=== PATIENT | female | born 2000 | race African-American/Black ===

== ENCOUNTER 2021-04-15 23:11 | Emergency (ER) | payer OTHER, MEDICAID ==
[2021-04-16] MEDS ORDERED: Lidocaine 1% (PF) 30 ML VIAL ONE (00:12)
== END 2021-04-16 00:45 | disposition home or self-care (01) ==
LOC: CSHERS 23:11
DX: L03.031 Cellulitis of right toe (principal); G47.30 Sleep apnea, unspecified; M41.9 Scoliosis, unspecified; E10.9 Type 1 diabetes mellitus without complications; J45.909 Unspecified asthma, uncomplicated
CPT/HCPCS: 10060; J2001

== ENCOUNTER 2022-05-24 05:28 | Inpatient (IN) | payer OTHER ==
[2022-05-24 07:15] LABS: #Monocytes 0.5 10x3/uL (0.0-1.1); #Neutrophils 8.6 10x3/uL (1.5-8.4); %Basophils 0.4 % (0.0-2.0); %Eosinophils 0.1 % (0.0-6.0); %Lymphocytes 11.9 % (18.0-47.0); %Monocytes 4.7 % (0.0-10.0); %Neutrophils 82.5 % (40.0-75.0); Hemoglobin 12.8 g/dL (12.0-15.5); Mean Corpuscular HGB CONC 33.2 g/dL (32.0-36.0); Mean Corpuscular Hemoglobin 28.9 pg (27.0-33.0); Mean Corpuscular Volume 86.9 fl (81.6-98.3); Mean Platelet Volume 10.4 fl (7.4-10.4); Platelet Count 377 10x3/uL (150-450); RBC Distribution Width 11.9 % (11.5-14.5); Red Blood Cell (RBC) Count 4.43 10x6/uL (3.90-5.03); White Blood Cell (WBC) Count 10.4 10x3/uL (3.5-10.5)
[2022-05-24 07:18] LABS: BHCG - Serum Negative (NEGATIVE); Pregs Control Background? CLEAR/WHITE (CLR/WHITE); Pregs Control Bar Appear? YES (CONTROL BAR)
[2022-05-24] MEDS ORDERED: Ketorolac Tromethamine 30 MG/ML VIAL ONE (07:21)
[2022-05-24] MEDS ORDERED: Ondansetron PF 4 MG/2 ML Vial ONE (07:22)
[2022-05-24 07:27] LABS: ALT (SGPT) 16 U/L (8-55); AST (SGOT) 18 U/L (5-34); Albumin 4.6 g/dL (3.5-5.0); Alkaline Phosphatase 111 U/L (40-110); Anion Gap 28 mmol/L (10-20); BUN (Urea Nitrogen) 25 mg/dL (7.0-18.7); Bilirubin, Total 1.4 mg/dL (0.2-1.2); Calc. Creatinine Clearance 0 mL/min (70-130); Calcium 10.4 mg/dL (7.8-10.44); Carbon Dioxide 14 mmol/L (22-29); Chloride 96 mmol/L (98-107); Estimated GFR 46; Globulin 3.7 g/dL (2.4-3.5); Potassium 5.3 mmol/L (3.5-5.1); Protein, Total 8.3 g/dL (6.0-8.3); Sodium 133 mmol/L (136-145)
[2022-05-24 07:31] LABS: Glucose 793 mg/dL (70-105)
[2022-05-24] MEDS ORDERED: Insulin Regular 300 UNITS/3 ML VIAL ONE (07:54)
[2022-05-24 08:10] LABS: Actual Bicarbonate (HCO3v) 14 mEq/L (22-28); Base Excess -14.5 mEq/L (-2.0 to +3.0); Chloride (VBG) 97 mmol/L (98-106); Potassium (VBG) 5.48 mmol/L (3.70-5.30); Puncture Site Other Site; RapidComm Collect By CBN; Sodium 136.1 mmol/L (133-146); pH (venous) 7.15 (7.32-7.43)
[2022-05-24] MEDS ORDERED: INSULIN REGULAR IN 0.9 % NACL 100 UNIT/100 ML BAG ONE (08:26)
[2022-05-24] MEDS ORDERED: Electrolyte Replacement Protocol 1 EACH IVPB PRN (08:30)
[2022-05-24] MEDS ORDERED: NS 0.9% w/ 20 MEQ KCL 1,000 ML IV PRN ×2 (08:30)
[2022-05-24] MEDS ORDERED: D5 1/2 NS w/20 mEq KCL 1,000 ML IV PRN (08:30)
[2022-05-24] MEDS ORDERED: Sodium Chloride 0.9% 1,000 ML IV PRN ×4 (08:30)
[2022-05-24] MEDS ORDERED: Dextrose 5 %-0.45 % NaCl 1,000 ML IV PRN (08:30)
[2022-05-24] MEDS ORDERED: Acetaminophen 650 MG Suppository PR PRN (08:33)
[2022-05-24 08:56] LABS: Anion Gap 29 mmol/L (10-20); BUN (Urea Nitrogen) 26 mg/dL (7.0-18.7); Calc. Creatinine Clearance 0 mL/min (70-130); Calcium 10.5 mg/dL (7.8-10.44); Carbon Dioxide 12 mmol/L (22-29); Chloride 98 mmol/L (98-107); Estimated GFR 51; Magnesium 2.3 mg/dL (1.6-2.6); Phosphorus 6.3 mg/dL (2.3-4.7); Potassium 5.3 mmol/L (3.5-5.1); Sodium 134 mmol/L (136-145)
[2022-05-24 08:58] LABS: Glucose 758 mg/dL (70-105)
[2022-05-24] MEDS ORDERED: cefTRIAXone\\ROCEPHIN 2 GM VIAL ONE (09:57)
[2022-05-24] MEDS ORDERED: HYDROcodone/Acetaminophen 5/325 mg Tablet PO PRN (10:18)
[2022-05-24] MEDS ORDERED: INSULIN REGULAR IN 0.9 % NACL 100 UNIT in Premix Bag 1 BAG IVPB SCH (12:30)
[2022-05-24] MEDS: Enoxaparin Sodium 40 MG/0.4 ML SYRINGE SC SCH (12:57)
[2022-05-24] MEDS: cefTRIAXone\\ROCEPHIN 1 GM in Sodium Chloride 0.9% 100 ML IVPB SCH (12:57)
[2022-05-24] MEDS: Famotidine 20 MG TAB PO SCH ×2 (12:57→20:42)
[2022-05-24 13:15] VITALS: BMI 26.6
[2022-05-24 13:27] LABS: Anion Gap 20 mmol/L (10-20); BUN (Urea Nitrogen) 20 mg/dL (7.0-18.7); Calc. Creatinine Clearance 104 mL/min (70-130); Calcium 8.7 mg/dL (7.8-10.44); Carbon Dioxide 12 mmol/L (22-29); Chloride 110 mmol/L (98-107); Estimated GFR 78; Glucose 312 mg/dL (70-105); Potassium 4.8 mmol/L (3.5-5.1); Sodium 137 mmol/L (136-145)
[2022-05-24 13:50] LABS: Bilirubin Neg (Negative); Blood, Urine 150 (Negative); Glucose, Urine (Dipstick) >=1000 mg/dL (Negative); Ketone, Urine 150 mg/dL (Negative); Leukocyte Negative (Negative); Nitrite Negative (Negative); Protein, Urine (Dipstick) 15 mg/dl (Neg-Trace); Urobilinogen Normal mg/dL (Less than 2)
[2022-05-24 13:54] LABS: Clarity Clear (Clear)
[2022-05-24 13:59] LABS: RBC/HPF 0-3 HPF (0-3); Squamous Epithelial 0-3 HPF (0-3); WBC/HPF 0-3 HPF (0-3)
[2022-05-24 14:00] LABS: Bacteria/HPF 2+ HPF (None Seen)
[2022-05-24 14:01] LABS: Mucous/LPF 1+ LPF (<2+)
[2022-05-24 14:30] LABS: ALT (SGPT) 15 U/L (8-55); AST (SGOT) 18 U/L (5-34); Albumin 3.9 g/dL (3.5-5.0); Alkaline Phosphatase 83 U/L (40-110); Bilirubin, Direct 0.2 mg/dL (0.1-0.3); Bilirubin, Total 0.5 mg/dL (0.2-1.2); Protein, Total 6.8 g/dL (6.0-8.3)
[2022-05-24] MEDS: Acetaminophen 325 MG TAB PO PRN (15:52)
[2022-05-24 16:33] LABS: SARS-CoV-2 NAA Rapid Test Not Detected (NotDetected)
[2022-05-24 18:02] LABS: Anion Gap 22 mmol/L (10-20); BUN (Urea Nitrogen) 17 mg/dL (7.0-18.7); Calc. Creatinine Clearance 94 mL/min (70-130); Calcium 8.9 mg/dL (7.8-10.44); Carbon Dioxide 10 mmol/L (22-29); Chloride 111 mmol/L (98-107); Estimated GFR 70; Potassium 5.7 mmol/L (3.5-5.1); Sodium 137 mmol/L (136-145)
[2022-05-24 18:08] LABS: Glucose 403 mg/dL (70-105)
[2022-05-24] MEDS: busPIRone HCl 15 MG TAB PO SCH (20:42)
[2022-05-24 23:12] LABS: Anion Gap 15 mmol/L (10-20); BUN (Urea Nitrogen) 12 mg/dL (7.0-18.7); Calc. Creatinine Clearance 110 mL/min (70-130); Calcium 8.7 mg/dL (7.8-10.44); Carbon Dioxide 12 mmol/L (22-29); Chloride 115 mmol/L (98-107); Estimated GFR 83; Glucose 202 mg/dL (70-105); Potassium 4.6 mmol/L (3.5-5.1); Sodium 137 mmol/L (136-145)
[2022-05-25 05:21] LABS: Anion Gap 11 mmol/L (10-20); BUN (Urea Nitrogen) 8 mg/dL (7.0-18.7); Calc. Creatinine Clearance 132 mL/min (70-130); Calcium 8.4 mg/dL (7.8-10.44); Carbon Dioxide 14 mmol/L (22-29); Chloride 113 mmol/L (98-107); Estimated GFR 104; Glucose 191 mg/dL (70-105); Potassium 4.1 mmol/L (3.5-5.1); Sodium 134 mmol/L (136-145)
[2022-05-25 05:42] LABS: #Monocytes 0.7 10x3/uL (0.0-1.1); #Neutrophils 7.4 10x3/uL (1.5-8.4); %Basophils 0.3 % (0.0-2.0); %Eosinophils 0.2 % (0.0-6.0); %Lymphocytes 21.4 % (18.0-47.0); %Monocytes 6.8 % (0.0-10.0); Hemoglobin 11.5 g/dL (12.0-15.5); Mean Corpuscular HGB CONC 33.8 g/dL (32.0-36.0); Mean Corpuscular Hemoglobin 29.3 pg (27.0-33.0); Mean Corpuscular Volume 86.5 fl (81.6-98.3); Mean Platelet Volume 9.3 fl (7.4-10.4); Platelet Count 327 10x3/uL (150-450); RBC Distribution Width 12.2 % (11.5-14.5); Red Blood Cell (RBC) Count 3.93 10x6/uL (3.90-5.03); White Blood Cell (WBC) Count 10.4 10x3/uL (3.5-10.5)
[2022-05-25] MEDS: busPIRone HCl 15 MG TAB PO SCH ×3 (08:50→20:37)
[2022-05-25] MEDS: Prenatal Vitamin 1 TAB PO SCH ×2 (08:50→08:51)
[2022-05-25] MEDS: Famotidine 20 MG TAB PO SCH ×2 (08:50→20:37)
[2022-05-25] MEDS: Acetaminophen 325 MG TAB PO PRN ×2 (08:50→22:34)
[2022-05-25] MEDS: Enoxaparin Sodium 40 MG/0.4 ML SYRINGE SC SCH (08:51)
[2022-05-25] MEDS ORDERED: Ibuprofen 400 MG TAB PO SCH (10:00)
[2022-05-25] MEDS: cefTRIAXone\\ROCEPHIN 1 GM in Sodium Chloride 0.9% 100 ML IVPB SCH (10:33)
[2022-05-25] MEDS ORDERED: Dextrose 5% in Water 1,000 ML IV PRN (13:15)
[2022-05-25] MEDS ORDERED: Dextrose 50% Abboject 50 ML SYRINGE SLOW IVP PRN (13:15)
[2022-05-25] MEDS ORDERED: HumaLOG 300 UNITS/3 ML VIAL SC PRN (13:15)
[2022-05-25] MEDS ORDERED: Lantus 1000 UNITS/10 ML VIAL SC SCH (13:30)
[2022-05-25] MEDS: Ondansetron ODT 4 MG TAB PO PRN ×2 (14:18→14:25)
[2022-05-25] MEDS: HumaLOG 300 UNITS/3 ML VIAL SC PRN ×2 (14:19→16:14)
[2022-05-25] MEDS ORDERED: Albuterol Sulfate 2.5 mg/3 ml Neb NEB PRN (19:00)
[2022-05-25] MEDS: Ondansetron PF 4 MG/2 ML Vial IVP PRN (20:45)
[2022-05-26] MEDS: HumaLOG 300 UNITS/3 ML VIAL SC PRN (01:15)
[2022-05-26] MEDS: Ondansetron PF 4 MG/2 ML Vial IVP PRN ×3 (04:13→19:22)
[2022-05-26 04:37] LABS: Anion Gap 21 mmol/L (10-20); BUN (Urea Nitrogen) 9 mg/dL (7.0-18.7); Calc. Creatinine Clearance 92 mL/min (70-130); Calcium 9.4 mg/dL (7.8-10.44); Chloride 106 mmol/L (98-107); Estimated GFR 67; Potassium 4.5 mmol/L (3.5-5.1); Sodium 131 mmol/L (136-145)
[2022-05-26 04:41] LABS: Carbon Dioxide 9 mmol/L (22-29); Glucose 438 mg/dL (70-105)
[2022-05-26] MEDS ORDERED: INSULIN REGULAR IN 0.9 % NACL 100 UNIT in Premix Bag 1 BAG IVPB SCH (05:30)
[2022-05-26] MEDS ORDERED: Sodium Chloride 0.9% 1,000 ML IV PRN ×4 (05:30)
[2022-05-26] MEDS ORDERED: HUMULIN R 100 UNITS in Sodium Chloride 0.9% 100 ML IVPB SCH (05:30)
[2022-05-26] MEDS ORDERED: NS 0.9% w/ 20 MEQ KCL 1,000 ML/1,000 ML BAG IV PRN ×2 (05:30)
[2022-05-26] MEDS ORDERED: D5 1/2 NS w/20 mEq KCL 1,000 ML IV PRN (05:30)
[2022-05-26] MEDS ORDERED: Dextrose 5% in Water 1,000 ML IV PRN (05:30)
[2022-05-26] MEDS: busPIRone HCl 15 MG TAB PO SCH ×3 (08:13→20:09)
[2022-05-26] MEDS: Famotidine 20 MG TAB PO SCH ×2 (08:13→20:09)
[2022-05-26] MEDS: Rosuvastatin 10 MG TAB PO SCH ×2 (08:13→08:22)
[2022-05-26] MEDS: Prenatal Vitamin 1 TAB PO SCH ×2 (08:13→08:22)
[2022-05-26 08:54] LABS: Anion Gap 19 mmol/L (10-20); BUN (Urea Nitrogen) 9 mg/dL (7.0-18.7); Calc. Creatinine Clearance 85 mL/min (70-130); Calcium 9.1 mg/dL (7.8-10.44); Chloride 111 mmol/L (98-107); Estimated GFR 61; Glucose 275 mg/dL (70-105); Sodium 134 mmol/L (136-145)
[2022-05-26 08:57] LABS: Carbon Dioxide 9 mmol/L (22-29)
[2022-05-26] MEDS: cefTRIAXone\\ROCEPHIN 1 GM in Sodium Chloride 0.9% 100 ML IVPB SCH (09:59)
[2022-05-26] MEDS: Dextrose 5 %-0.45 % NaCl 1,000 ML IV PRN ×2 (10:07→14:31)
[2022-05-26 12:29] LABS: Anion Gap 15 mmol/L (10-20); BUN (Urea Nitrogen) 7 mg/dL (7.0-18.7); Calc. Creatinine Clearance 101 mL/min (70-130); Calcium 8.8 mg/dL (7.8-10.44); Carbon Dioxide 12 mmol/L (22-29); Chloride 111 mmol/L (98-107); Estimated GFR 75; Glucose 235 mg/dL (70-105); Potassium 4.2 mmol/L (3.5-5.1); Sodium 134 mmol/L (136-145)
[2022-05-26] MEDS ORDERED: Lantus 1000 UNITS/10 ML VIAL SC SCH ×3 (14:00→21:00)
[2022-05-26 17:57] LABS: Anion Gap 13 mmol/L (10-20); BUN (Urea Nitrogen) 5 mg/dL (7.0-18.7); Calc. Creatinine Clearance 120 mL/min (70-130); Calcium 8.7 mg/dL (7.8-10.44); Carbon Dioxide 15 mmol/L (22-29); Chloride 110 mmol/L (98-107); Estimated GFR 92; Glucose 184 mg/dL (70-105); Sodium 134 mmol/L (136-145)
[2022-05-26] MEDS ORDERED: Ondansetron ODT 4 MG TAB PO PRN (19:30)
[2022-05-26] MEDS: Lantus 1000 UNITS/10 ML VIAL SC SCH ×2 (20:10→20:16)
[2022-05-26] MEDS ORDERED: SUMAtriptan Succinate 25 MG TAB PO SCH (21:00)
[2022-05-26] MEDS ORDERED: Naproxen 500 MG TAB PO SCH (21:00)
[2022-05-26] MEDS ORDERED: Magnesium 2 GM/50 ML(in water) 2 GM in Premix Bag 1 BAG IVPB SCH (21:00)
[2022-05-27] MEDS: HumaLOG 300 UNITS/3 ML VIAL SC PRN ×4 (00:30→21:08)
[2022-05-27 04:53] LABS: Anion Gap 14 mmol/L (10-20); BUN (Urea Nitrogen) 6 mg/dL (7.0-18.7); Calc. Creatinine Clearance 122 mL/min (70-130); Calcium 8.9 mg/dL (7.8-10.44); Carbon Dioxide 17 mmol/L (22-29); Chloride 110 mmol/L (98-107); Estimated GFR 95; Glucose 151 mg/dL (70-105); Potassium 3.6 mmol/L (3.5-5.1); Sodium 137 mmol/L (136-145)
[2022-05-27] MEDS: Acetaminophen 325 MG TAB PO PRN (07:02)
[2022-05-27] MEDS: Ondansetron PF 4 MG/2 ML Vial IVP PRN (07:55)
[2022-05-27] MEDS ORDERED: Promethazine HCl 12.5 MG, Admixture Fee 1 EACH in Sodium Chloride 0.9% 50 ML IVPB PRN (08:27)
[2022-05-27] MEDS: Rosuvastatin 10 MG TAB PO SCH (08:42)
[2022-05-27] MEDS: Famotidine 20 MG TAB PO SCH ×2 (08:42→21:09)
[2022-05-27] MEDS: busPIRone HCl 15 MG TAB PO SCH ×2 (08:42→21:09)
[2022-05-27] MEDS: Prenatal Vitamin 1 TAB PO SCH (08:42)
[2022-05-27] MEDS ORDERED: Lactated Ringer's 1,000 ML IV SCH (08:45)
[2022-05-27] MEDS ORDERED: Lantus 1000 UNITS/10 ML VIAL SC SCH ×3 (09:00→21:00)
[2022-05-27] MEDS: Ketorolac Tromethamine 30 MG/ML VIAL IVP PRN ×2 (09:39→17:57)
[2022-05-27] MEDS ORDERED: NPH, Human Insulin Isophane 300 UNIT/3 ML VIAL SC SCH (12:00)
[2022-05-27 12:02] LABS: ALT (SGPT) 14 U/L (8-55); AST (SGOT) 15 U/L (5-34); Albumin 3.6 g/dL (3.5-5.0); Alkaline Phosphatase 75 U/L (40-110); Anion Gap 12 mmol/L (10-20); BUN (Urea Nitrogen) 7 mg/dL (7.0-18.7); Bilirubin, Direct 0.3 mg/dL (0.1-0.3); Bilirubin, Total 0.8 mg/dL (0.2-1.2); Calc. Creatinine Clearance 111 mL/min (70-130); Calcium 8.7 mg/dL (7.8-10.44); Carbon Dioxide 17 mmol/L (22-29); Chloride 109 mmol/L (98-107); Estimated GFR 84; Glucose 278 mg/dL (70-105); Lipase 10 U/L (8-78); Magnesium 1.7 mg/dL (1.6-2.6); Phosphorus 2.3 mg/dL (2.3-4.7); Potassium 3.8 mmol/L (3.5-5.1); Protein, Total 6.5 g/dL (6.0-8.3); Sodium 134 mmol/L (136-145)
[2022-05-27] MEDS ORDERED: Magnesium 2 GM/50 ML(in water) 2 GM in Premix Bag 1 BAG IVPB SCH (13:00)
[2022-05-27] MEDS: NPH, Human Insulin Isophane 300 UNIT/3 ML VIAL SC SCH (17:12)
[2022-05-28] MEDS: HumaLOG 300 UNITS/3 ML VIAL SC PRN ×2 (00:27→12:09)
[2022-05-28] MEDS: Ketorolac Tromethamine 30 MG/ML VIAL IVP PRN (00:28)
[2022-05-28 04:36] LABS: Anion Gap 12 mmol/L (10-20); BUN (Urea Nitrogen) 9 mg/dL (7.0-18.7); Calc. Creatinine Clearance 125 mL/min (70-130); Calcium 8.9 mg/dL (7.8-10.44); Carbon Dioxide 19 mmol/L (22-29); Chloride 112 mmol/L (98-107); Estimated GFR 97; Glucose 127 mg/dL (70-105); Magnesium 1.8 mg/dL (1.6-2.6); Potassium 3.4 mmol/L (3.5-5.1); Sodium 140 mmol/L (136-145)
[2022-05-28] MEDS ORDERED: Magnesium 2 GM/50 ML(in water) 2 GM in Premix Bag 1 BAG IVPB SCH (06:00)
[2022-05-28] MEDS ORDERED: Potassium Chloride 20 MEQ TAB PO SCH (06:00)
[2022-05-28] MEDS: NPH, Human Insulin Isophane 300 UNIT/3 ML VIAL SC SCH ×2 (08:48→12:08)
[2022-05-28] MEDS: busPIRone HCl 15 MG TAB PO SCH (08:49)
[2022-05-28] MEDS: Famotidine 20 MG TAB PO SCH (08:49)
[2022-05-28] MEDS: Prenatal Vitamin 1 TAB PO SCH (08:49)
[2022-05-28] MEDS: Rosuvastatin 10 MG TAB PO SCH (08:50)
[2022-05-28] MEDS ORDERED: Lantus 1000 UNITS/10 ML VIAL SC SCH ×2 (09:00)
[2022-05-28] MEDS ORDERED: Ketorolac Tromethamine 10 MG TAB PO SCH (09:00)
[2022-05-28] MEDS ORDERED: Promethazine 25 MG TAB PO SCH ×2 (09:00→09:15)
[2022-05-28 13:19] VITALS: BP 111/71; TEMP 98.6
== END 2022-05-28 15:25 | disposition home or self-care (01) | DRG 919 ==
LOC: CSHERS 05:28 → CSHIMCU 11:35
PROVIDERS: ADMIT Family Medicine; ATTEND Family Medicine
DX: T85.694A Other mechanical complication of insulin pump, initial encounter (principal); E10.10 Type 1 diabetes mellitus with ketoacidosis without coma; N17.9 Acute kidney failure, unspecified; F41.9 Anxiety disorder, unspecified; E78.5 Hyperlipidemia, unspecified; E80.6 Other disorders of bilirubin metabolism; J02.9 Acute pharyngitis, unspecified; J45.909 Unspecified asthma, uncomplicated; G43.909 Migraine, unspecified, not intractable, without status migrainosus; R10.13 Epigastric pain; T38.3X6A Underdosing of insulin and oral hypoglycemic [antidiabetic] drugs, initial encounter; F43.10 Post-traumatic stress disorder, unspecified; K21.9 Gastro-esophageal reflux disease without esophagitis; E10.40 Type 1 diabetes mellitus with diabetic neuropathy, unspecified; Z90.89 Acquired absence of other organs; Z88.0 Allergy status to penicillin; Z88.6 Allergy status to analgesic agent; Z98.890 Other specified postprocedural states; Z82.49 Family history of ischemic heart disease and other diseases of the circulatory system; Z88.1 Allergy status to other antibiotic agents; Z79.899 Other long term (current) drug therapy; Z79.4 Long term (current) use of insulin; Z20.822 Contact with and (suspected) exposure to COVID-19
CPT/HCPCS: 36415; 36416; 71045; 74176; 80048; 80053; 80076; 81001; 82010; 82247; 82805; 83690; 83735; 83930; 84100; 84703; 85025; 87081; 87086; 87430; 93005; 93010; 96361; 96365; 96366; 96368; 96375; 96376; J0696; J1650; J1815; J1885; J2405; J2550; J3475; J3480; J3490; J7042; J7050; J7120; J7999; Q0162; Q0169

== ENCOUNTER 2024-06-09 10:06 | Emergency (ER) | payer OTHER ==
[2024-06-09 11:23] LABS: #Basophils 0.02 10x3/uL (0.0-0.2); #Eosinophils 0.01 10x3/uL (0.0-0.5); #Monocytes 0.39 10x3/uL (0.0-1.1); #Neutrophils 3.96 10x3/uL (1.5-8.4); %Basophils 0.4 % (0.0-2.0); %Eosinophils 0.2 % (0.0-6.0); %Monocytes 6.8 % (0.0-10.0); %Neutrophils 69.4 % (40.0-75.0); Hematocrit 39.4 % (34.9-44.5); Hemoglobin 12.5 g/dL (12.0-15.5); Mean Corpuscular HGB CONC 31.7 g/dL (32.0-36.0); Mean Corpuscular Hemoglobin 28.2 pg (27.0-33.0); Mean Corpuscular Volume 88.9 fL (81.6-98.3); Mean Platelet Volume 9.5 fL (7.4-10.4); Platelet Count 319 10x3/uL (150-450); RBC Distribution Width 12.2 % (11.5-14.5); Red Blood Cell (RBC) Count 4.43 10x6/uL (3.90-5.03); White Blood Cell (WBC) Count 5.7 10x3/uL (3.5-10.5)
[2024-06-09 11:35] LABS: BHCG - Serum Negative (NEGATIVE); Pregs Control Background? CLEAR/WHITE (CLR/WHITE); Pregs Control Bar Appear? YES (CONTROL BAR)
[2024-06-09 11:45] LABS: ALT (SGPT) 10 U/L (8-55); AST (SGOT) 16 U/L (5-34); Acetaminophen Less than 10 mcg/mL (Less than 10); Albumin 3.4 g/dL (3.5-5.0); Alcohol Less than 10.0 mg/dL (Less than 10); Alkaline Phosphatase 73 U/L (40-110); Anion Gap 15 mmol/L (10-20); BUN (Urea Nitrogen) 4 mg/dL (7.0-18.7); Bilirubin, Total 0.6 mg/dL (0.2-1.2); CK (CPK) 132 U/L (29-168); Calc. Creatinine Clearance 0 mL/min (70-130); Calcium 9.2 mg/dL (7.8-10.44); Carbon Dioxide 23 mmol/L (22-29); Chloride 107 mmol/L (98-107); Estimated GFR 100; Globulin 3.5 g/dL (2.4-3.5); Glucose 102 mg/dL (70-105); Lipase 18 U/L (8-78); Protein, Total 6.9 g/dL (6.0-8.3); Salicylate Less than 8.0 mg/dL (Less than 8.0); Sodium 141 mmol/L (136-145)
[2024-06-09 11:48] LABS: Troponin I Less than 0.010 ng/mL (< 0.028)
[2024-06-09 13:26] LABS: Bilirubin Neg (Negative); Blood, Urine Negative (Negative); Clarity Clear (Clear); Glucose, Urine (Dipstick) Normal (Negative); Ketone, Urine 50 mg/dL (Negative); Leukocyte 25 (Negative); Nitrite Negative (Negative); Protein, Urine (Dipstick) 15 mg/dl (Neg-Trace); Specific Gravity, Urine 1.015 (1.005-1.030)
[2024-06-09 13:36] LABS: Amphetamine Not Detected (NotDetected); Barbiturates Screen Not Detected (NotDetected); Benzodiazepine Screen Not Detected (NotDetected); Cocaine Metabolite Screen Not Detected (NotDetected); Methadone Not Detected (NotDetected); Methamphetamine Not Detected (NotDetected); Opiate Screen Not Detected (NotDetected); Oxycodone Screen Not Detected (NotDetected); Phencyclidine (PCP) Not Detected (NotDetected); THC/Cannabinoid Screen Detected (NotDetected); Tricyclic Screen Not Detected (NotDetected)
[2024-06-09 13:41] LABS: Bacteria/HPF 1+ HPF (None Seen); CAUTI Indications for Culture Alt mental st,lethar; RBC/HPF None Seen HPF (0-3); Urine Culture Reflex No No; WBC/HPF 0-3 HPF (0-3)
== END 2024-06-09 14:18 | disposition home or self-care (01) ==
LOC: CSHERS 10:06
DX: T85.694A Other mechanical complication of insulin pump, initial encounter (principal); E10.649 Type 1 diabetes mellitus with hypoglycemia without coma
CPT/HCPCS: 36415; 36416; 80053; 80306; 80307; 81001; 82010; 82550; 83690; 84443; 84484; 84703; 85025; 87428; 93005; 99285